=== PATIENT | female | born 1950 | race Caucasian/White ===

== ENCOUNTER 2023-08-27 16:45 | Observation (INO) ==
[2023-08-27 17:11] LABS: ABS Basophils 0.1 10^3/uL (0.0-0.1); ABS Eosinophils 0.2 10^3/uL (0.0-0.5); ABS Lymphocytes 2.4 10^3/uL (1.0-4.8); ABS Monocytes 0.7 10^3/uL (0.0-0.9); ABS Neutrophils 2.3 10^3/uL (1.5-7.6); ABS Nucleated RBC 0.01 10^3/ul; Eosinophil % 3.2 %; Hematocrit 38.7 % (35-45); Hemoglobin 12.9 g/dL (11.5-14.3); Lymphocyte % 43.4 %; Mean Corpuscular Hemoglobin 28.5 pg (27-33); Mean Corpuscular Hgb Conc 33.3 g/dL (31-36); Mean Corpuscular Volume 85.5 fL (80-97); Nucleated Red Blood Cells % 0.1 %/100WBC (0.0-0.8); Platelet Count 340 10^3/uL (150-450); Red Blood Count 4.53 10^6/uL (3.63-4.92); Red Cell Distribution Width 15.2 % (12-17); White Blood Count 5.6 10^3/uL (3.8-11.8)
[2023-08-27 17:20] LABS: INR 0.94 (0.83-1.13)
[2023-08-27 17:53] LABS: Albumin/Globulin Ratio 1.5 (1-3); Calcium 9.1 mg/dL (8.6-10.3); Creatinine, Serum 0.82 mg/dL (0.51-0.95); Globulin 2.6 g/dL (2-4); Potassium 4.3 mmol/L (3.5-5.0); Total Bilirubin 0.3 mg/dL (0.2-1.0); Total Protein 6.6 g/dL (6.4-8.9); eGFR CKD-EPI 74.5 (>60)
[2023-08-27 18:44] LABS: High Sensitivity Troponin 1 Hr 24 pg/mL (<15)
[2023-08-27] MEDS: Iohexol 350 (CONTRAST) 500 ML MDV IV ONE (19:33)
[2023-08-27 20:38] LABS: Urine Appearance Clear; Urine Bilirubin Negative (Negative); Urine Blood Negative (Negative); Urine Color Light-Yellow; Urine Glucose Negative (Negative); Urine Ketones Negative (Negative); Urine Nitrite Negative (Negative); Urine Protein Negative (Negative); Urine Specific Gravity >1.050 (1.002-1.030); Urine Urobilinogen Negative (Negative); Urine pH 5.5 (5.0-8.0)
[2023-08-27] MEDS: Ondansetron 4 mg VIAL 2 MG/ML 2 ml VIAL IV ONE (22:30)
[2023-08-28 00:30] LABS: TSH Ultra Thyroid Stim Horm 2.47 mcIU/mL (0.34-5.60)
[2023-08-28 02:05] LABS: Activated Partial Thrombo Time 28.7 seconds (26.0-38.0); INR 0.93 (0.83-1.13)
[2023-08-28 06:34] LABS: ABS Basophils 0.1 10^3/uL (0.0-0.1); ABS Eosinophils 0.2 10^3/uL (0.0-0.5); ABS Lymphocytes 2.4 10^3/uL (1.0-4.8); ABS Monocytes 0.7 10^3/uL (0.0-0.9); ABS Neutrophils 2.7 10^3/uL (1.5-7.6); Hematocrit 37.5 % (35-45); Hemoglobin 12.5 g/dL (11.5-14.3); Lymphocyte % 39.3 %; Mean Corpuscular Hemoglobin 28.2 pg (27-33); Mean Corpuscular Hgb Conc 33.4 g/dL (31-36); Mean Corpuscular Volume 84.6 fL (80-97); Mean Platelet Volume 7.2 fL (7.5-11.2); Platelet Count 329 10^3/uL (150-450); Red Blood Count 4.43 10^6/uL (3.63-4.92); Red Cell Distribution Width 15.7 % (12-17); White Blood Count 6.1 10^3/uL (3.8-11.8)
[2023-08-28 06:51] LABS: Calcium 8.7 mg/dL (8.6-10.3); Creatinine, Serum 0.71 mg/dL (0.51-0.95); Magnesium 2.1 mg/dL (1.9-2.7); Potassium 4.1 mmol/L (3.5-5.0); eGFR CKD-EPI 88.6 (>60)
[2023-08-28] MEDS ORDERED: Regadenoson 0.4 MG/5 ML SYRINGE ONE (07:34)
[2023-08-28] MEDS ORDERED: Aminophylline 25 MG/ML VIAL ONE (07:34)
[2023-08-28] MEDS: CMCS: Brimonidine/Timolol 0.2%/0.5% OPTH(NF) SOL 5 ML LEFT EYE SCH (10:24)
[2023-08-28] MEDS: prednisoLONE 1% OPHTH.SUSP 5 ML OPHTH.SUSP LEFT EYE SCH (10:25)
[2023-08-28] MEDS: Heparin 5000 UNITS/ML 1 mL VIAL SUBCUT SCH (11:36)
[2023-08-28 14:40] VITALS: BP 161/94
[2023-08-28] MEDS ORDERED: Latanoprost 0.005% 2.5 ml BTL BOTH EYES SCH (21:00)
== END 2023-08-28 17:25 | disposition short-term general hospital (02) ==
LOC: EDHOLD 16:45 → ED 16:45 → SUATTDRO 23:35 → MEDTELE 08-28 04:54
PROVIDERS: ADMIT Student in an Organized Health Care Education/Training Program; ATTEND Student in an Organized Health Care Education/Training Program